=== PATIENT | male | born 1955 | race Caucasian/White ===

== ENCOUNTER 2022-01-14 08:58 | Outpatient (CLI) | payer MEDICARE ==
[2022-01-14] MEDS ORDERED: Magnevist 469MG/ML 20 ML VIAL ONE (10:20)
== END 2022-01-14 08:59 | disposition home or self-care (01) ==
LOC: CSHMRI 08:58
PROVIDERS: ATTEND Urology
DX: N40.2 Nodular prostate without lower urinary tract symptoms (principal)
CPT/HCPCS: 72195; 72197; 82565